=== PATIENT | female | born 1995 ===

== ENCOUNTER 2017-09-05 23:30 | Emergency (ER) | payer MEDICAID ==
[2017-09-06 00:43] VITALS: RESP 20; TEMP 98.4; O2SAT 99
--- NOTE | 2017-09-06 01:05 | C.PDOC ---
History Of Present Illness 21 year old female presents to the ED with complaints of bilateral ear and throat pain starting today; she was treated with antibiotics for similar symptoms approximately 3 weeks ago. Denies any other symptoms. no fever or chills. Time Seen by Provider: 09/06/17 00:55 Chief Complaint (Nursing): ENT Problem History Per: Patient History/Exam Limitations: None Onset/Duration Of Symptoms: Days Current Symptoms Are (Timing): Still Present Quality (Ear): Other (Pain) Quality (Mouth/Throat): Other (Sore throat) Symptoms Have Been: Continuous Past Medical History Reviewed: Historical Data, Nursing Documentation, Vital Signs Vital Signs: Last Vital Signs Temp 98.4 F 09/06/17 00:39 Pulse 88 09/06/17 02:11 Resp 20 09/06/17 02:11 BP 128/77 09/06/17 02:11 Pulse Ox 99 09/08/17 21:52 - Medical History PMH: Asthma Surgical History: No Surg Hx Family History: States: Unknown Family Hx - Social History Hx Tobacco Use: No Hx Alcohol Use: No Hx Substance Use: No - Immunization History Hx Tetanus Toxoid Vaccination: No Hx Influenza Vaccination: No Hx Pneumococcal Vaccination: No Review Of Systems Constitutional: Negative for: Fever, Chills ENT: Positive for: Ear Pain, Throat Pain. Negative for: Ear Discharge Respiratory: Negative for: Cough Physical Exam - Physical Exam Appears: Non-toxic, No Acute Distress Skin: Normal Color, Warm, Dry Head: Atraumatic, Normacephalic Ear(s): Bilateral: Normal Nose: Normal, No Discharge Tongue: Normal Appearing, No Swelling Throat: Erythema (Mild), Other (No tonsilar enlargement or exudates) Neck: Normal, Supple Lymphatic: Normal Exam, No Adenopathy (cervical) Chest: Symmetrical, No Deformity, No Tenderness Cardiovascular: Rhythm Regular, No Murmur Respiratory: Normal Breath Sounds, No Rales, No Rhonchi, No Wheezing Gastrointestinal/Abdominal: Soft, No Tenderness Neurological/Psych: Oriented x3, Normal Speech, Normal Cognition ED Course And Treatment O2 Sat by Pulse Oximetry: 99 (Room air) Pulse Ox Interpretation: Normal Medical Decision Making Medical Decision Making: Throat culture, and strep test performed, Tylenol administered. Rapid strep results came back negative, patient instructed to take claritin and follow up with PMD. Disposition Counseled Patient/Family Regarding: Studies Performed, Need For Followup, Rx Given - Disposition Referrals: Jodee Gusman MD [Medical Doctor] - Disposition: HOME/ ROUTINE Disposition Time: 02:03 Condition: STABLE Additional Instructions: Gargle with warm salty water several times a day, drink tea with honey and lemon. Take claritin as directed. Follow up with your doctor in a few days. Tylenol or Motrin for pain. Prescriptions: Loratadine 10 mg PO DAILY #30 tablet Instructions: Pharyngitis (ED) Forms: [employer] (Lao), Emergency Room Disch/Depart - Clinical Impression Clinical Impression: Pharyngitis - Scribe Statement The provider has reviewed the documentation as recorded by the Scribe Federico Gerard All medical record entries made by the Scribe were at my direction and personally dictated by me. I have reviewed the chart and agree that the record accurately reflects my personal performance of the history, physical exam, medical decision making, and the department course for this patient. I have also personally directed, reviewed, and agree with the discharge instructions and disposition.
[2017-09-06 02:15] VITALS: BP 128/77; PULSE 88
== END 2017-09-06 02:11 | disposition home or self-care (01) ==
LOC: C.ER 23:30
DX: J02.9 Acute pharyngitis, unspecified (principal)

== ENCOUNTER 2017-12-17 14:17 | Emergency (ER) | payer MEDICAID, OTHER ==
[2017-12-17 14:23] VITALS: BP 125/73; PULSE 99; RESP 18; TEMP 99; O2SAT 99
--- NOTE | 2017-12-17 14:33 | C.PDOC ---
History Of Present Illness Patient presents to ED with complaints of cough, congestion for the past 2 weeks. She reports for the past 2 days, she has had associated sore throat, generalized body aches, subjective fever, nausea and diarrhea. She denies any other medical complaints. Time Seen by Provider: 12/17/17 14:28 Chief Complaint (Nursing): Flu-like Symptoms History Per: Patient History/Exam Limitations: no limitations Onset/Duration Of Symptoms: Days, Persistent Current Symptoms Are (Timing): Still Present Location Of Pain: Diffuse Myalgias Associated Symptoms: Fever, Sore Throat, Cough, Myalgias, Nasal Congestion Past Medical History Reviewed: Historical Data, Nursing Documentation, Vital Signs Vital Signs: Last Vital Signs Temp 99 F 12/17/17 14:21 Pulse 99 H 12/17/17 14:21 Resp 18 12/17/17 14:21 BP 125/73 12/17/17 14:21 Pulse Ox 99 12/17/17 14:43 - Medical History PMH: Asthma Surgical History: No Surg Hx Family History: States: Unknown Family Hx - Social History Hx Tobacco Use: No Hx Alcohol Use: No Hx Substance Use: No - Immunization History Hx Tetanus Toxoid Vaccination: No Hx Influenza Vaccination: No Hx Pneumococcal Vaccination: No Review Of Systems Constitutional: Positive for: Fever, Weakness, Malaise ENT: Positive for: Nose Congestion, Throat Pain. Negative for: Ear Pain Cardiovascular: Negative for: Chest Pain, Palpitations Respiratory: Positive for: Cough Gastrointestinal: Positive for: Nausea, Diarrhea Skin: Negative for: Rash Neurological: Negative for: Headache, Dizziness Physical Exam - Physical Exam Appears: Well, Non-toxic, No Acute Distress Skin: Normal Color, Warm, Dry Head: Atraumatic, Normacephalic Eye(s): bilateral: Normal Inspection, PERRL, EOMI Ear(s): Bilateral: Normal Nose: Normal Oral Mucosa: Moist Tongue: Normal Appearing Lips: Normal Appearing Teeth: Normal Dentition Gingiva: Normal Appearing Throat: Normal, No Erythema, No Exudate Neck: Normal ROM, Supple Chest: Symmetrical Cardiovascular: Rhythm Regular Respiratory: Normal Breath Sounds, No Wheezing Gastrointestinal/Abdominal: Soft, No Tenderness Extremity: Bilateral: Atraumatic, Normal ROM Neurological/Psych: Oriented x3, Normal Speech ED Course And Treatment O2 Sat by Pulse Oximetry: 99 (RA) Pulse Ox Interpretation: Normal Medical Decision Making Medical Decision Making: Patient with multi-symptom complaints, likely viral or flu-like. She has no fever and benign exam in ED. Recommend rest, fluids and supportive treatment. Advise follow up with primary doctor or clinic for further evaluation. Disposition Counseled Patient/Family Regarding: Diagnosis, Need For Followup, Rx Given - Disposition Referrals: Jodee Gusman MD [Medical Doctor] - Disposition: HOME/ ROUTINE Disposition Time: 14:35 Condition: GOOD Additional Instructions: You have viral upper respiratory infection. Take Tylenol or Motrin alternating every 4-6 hours for Fever 100.4F or higher. Rest and drink plenty of fluids. Take Zofran and Lomotil as needed for nausea and diarrhea. May use cool mist humidifier or vaporizer in room. Try taking over the counter antihistamine ( Claritin, Bouchra, Zyrtec), Decongestant or Cough medicine as needed every 6-8 hours. Follow up with your primary medical doctor or clinic in 1 week for further evaluation. Prescriptions: Atropine/Diphenoxylate [Lonox 0.025 MG-2.5 MG] 1 tab PO PRN PRN #6 tab PRN Reason: Diarrhea Benzocaine/Menthol [Cepacol Sore Throat] 1 adelita MM Q2 #30 adelita Ondansetron ODT [Zofran ODT] 1 odt PO BID PRN #6 odt PRN Reason: Nausea/Vomiting Promethazine DM [Phenergan DM Syrup] 10 ml PO Q8 PRN #300 ml PRN Reason: Cough Instructions: Viral Syndrome (ED) Forms: [employer] (Chinese), Work Excuse - POA Present On Arrival: None - Clinical Impression Clinical Impression: Influenza-like illness - PA / [employer] / Resident Statement MD/DO has reviewed & agrees with the documentation as recorded. - Scribe Statement The provider has reviewed the documentation as recorded by the Gregoria August Provider Attestation: All medical record entries made by the Gregoria were at my direction and personally dictated by me. I have reviewed the chart and agree that the record accurately reflects my personal performance of the history, physical exam, medical decision making, and the department course for this patient. I have also personally directed, reviewed, and agree with the discharge instructions and disposition.
== END 2017-12-17 14:42 | disposition home or self-care (01) ==
LOC: C.ER 14:17
DX: J11.1 Influenza due to unidentified influenza virus with other respiratory manifestations (principal)

== ENCOUNTER 2018-06-20 19:44 | Emergency (ER) | payer MEDICAID ==
[2018-06-20 20:11] VITALS: RESP 18
--- NOTE | 2018-06-20 20:16 | C.PDOC ---
History Of Present Illness The patient presents to the ED for evaluation after she became lightheaded, dizzy and diaphoretic while waiting at a restaurant earlier today. Patient also reports experiencing some abdominal pain and nausea. She then went outside for some air, and reports seeing some "white spots" in her eyes. Patient states she feels tired and denies fever, chills, or vomiting at this time. Time Seen by Provider: 06/20/18 20:10 Chief Complaint (Nursing): Dizziness/Lightheaded History Per: Patient History/Exam Limitations: no limitations Onset/Duration Of Symptoms: Hrs Current Symptoms Are (Timing): Still Present Severity: Mild Pain Scale Rating Of: 4 Recent travel outside of the [place]: No Additional History Per: Patient Past Medical History Reviewed: Historical Data, Nursing Documentation, Vital Signs Vital Signs: Last Vital Signs Temp 98.7 F 06/20/18 21:55 Pulse 84 06/20/18 21:55 Resp 18 06/20/18 21:55 BP 110/70 06/20/18 21:55 Pulse Ox 98 06/20/18 21:55 - Medical History PMH: Asthma, Chronic Kidney Disease Surgical History: No Surg Hx Family History: States: No Known Family Hx - Social History Hx Tobacco Use: No Hx Alcohol Use: Yes Hx Substance Use: No - Immunization History Hx Tetanus Toxoid Vaccination: No Hx Influenza Vaccination: No Hx Pneumococcal Vaccination: No Review Of Systems Constitutional: Positive for: Other (diaphoretic ). Negative for: Fever, Chills Eyes: Positive for: Other (seeing "white spots"). Negative for: Pain, Vision Change ENT: Negative for: Ear Pain Cardiovascular: Negative for: Chest Pain, Palpitations Respiratory: Negative for: Cough, Shortness of Breath Gastrointestinal: Positive for: Nausea, Abdominal Pain. Negative for: Vomiting , Diarrhea Skin: Negative for: Rash, Lesions, Jaundice, Bruising Neurological: Positive for: Dizziness, Other (lightheadedness ). Negative for: Weakness, Numbness, Headache Psych: Negative for: Anxiety Physical Exam - Physical Exam Appears: Non-toxic, No Acute Distress Skin: Warm, Dry Head: Atraumatic, Normacephalic Eye(s): bilateral: PERRL, EOMI Ear(s): Bilateral: Normal Oral Mucosa: Moist Neck: Supple Chest: Symmetrical, No Deformity, No Tenderness Cardiovascular: Rhythm Regular, No Murmur Respiratory: No Rales, No Rhonchi, No Wheezing Gastrointestinal/Abdominal: Soft, No Tenderness, No Guarding, No Rebound Extremity: Normal ROM, Capillary Refill (less than 2 seconds ) Neurological/Psych: Oriented x3 Gait: Steady ED Course And Treatment - Laboratory Results Result Diagrams: 06/20/18 20:46 06/20/18 20:46 ECG: Interpreted By Me, Viewed By Me ECG Rhythm: Sinus Rhythm (72), Nonspecific Changes O2 Sat by Pulse Oximetry: 100 (on RA) Pulse Ox Interpretation: Normal Progress Note: Bloodwork, urinalysis, and EKG ordered. IV fluids given. Reevaluation Time: 21:57 Reassessment Condition: Improved Disposition Counseled Patient/Family Regarding: Studies Performed, Diagnosis, Need For Followup, Rx Given - Disposition Disposition: HOME/ ROUTINE Disposition Time: 20:15 Condition: FAIR Additional Instructions: Pleaase return in 12-24 hours if not feeling better Prescriptions: Nitrofurantoin Macrocrystals [Macrobid] 1 cap PO BID #14 cap Instructions: Urinary Tract Infection, Adult (DC) Forms: [employer] (Uruguayan) - Clinical Impression Clinical Impression: UTI (urinary tract infection), Malaise and fatigue - Scribe Statement The provider has reviewed the documentation as recorded by the Scribe (Bree Pemberton) Provider Attestation: All medical record entries made by the Scribe were at my direction and personally dictated by me. I have reviewed the chart and agree that the record accurately reflects my personal performance of the history, physical exam, medical decision making, and the department course for this patient. I have also personally directed, reviewed, and agree with the discharge instructions and disposition.
[2018-06-20] MEDS ORDERED: Sodium Chloride 0.9% 1,000 ML IV ONE (20:31)
[2018-06-20 20:32] LABS: HCG,QUALITATIVE URINE NEGATIVE (NEGATIVE)
[2018-06-20 20:37] LABS: SQUAMOUS EPITHIAL 3 /hpf (0-5); URINE BACTERIA OCC (<OCC); URINE BILIRUBIN NEGATIVE (NEGATIVE); URINE BLOOD 1+ (NEGATIVE); URINE CLARITY Hazy (Clear); URINE COLOR Yellow (YELLOW); URINE GLUCOSE (UA) NORMAL (Normal); URINE LEUKOCYTE ESTERASE TRACE Leu/uL (Negative); URINE PROTEIN 1+ mg/dL (NEGATIVE)
[2018-06-20] MEDS ORDERED: Sodium Chloride 0.9% 1,000 ML ONE (20:43)
[2018-06-20 20:51] LABS: BASO % 0.2 % (0.0-2.0); EOS % 0.3 % (0.0-4.0); HEMOGLOBIN 12.6 g/dL (11.0-16.0); LYMPH % 9.3 % (20.0-40.0); MEAN CELL VOLUME 88.8 fL (81.0-99.0); MEAN CORPUSCULAR HEMOGLOBIN 30.5 pg (27.0-31.0); MEAN CORPUSCULAR HGB CONC 34.4 g/dL (33.0-37.0); MEAN PLATELET VOLUME 8.3 fL (7.2-11.7); MONO # 0.7 K/uL (0.0-0.8); MONO % 7.1 % (0.0-10.0); NEUT # 8.8 K/uL (1.8-7.0); NEUT % 83.1 % (50.0-75.0); PLATELET COUNT 307 K/uL (130-400); RBC 4.14 Mil/uL (3.80-5.20); RED CELL DISTRIBUTION WIDTH 12.4 % (11.5-14.5); WHITE BLOOD COUNT 10.6 K/uL (4.8-10.8)
[2018-06-20 21:16] LABS: ALB/GLOB RATIO 1.5 (1.0-2.1); ALBUMIN 4.6 g/dL (3.5-5.0); ALT/SGPT 21 U/L (9-52); AST/SGOT 17 U/L (14-36); BLOOD UREA NITROGEN 13 mg/dL (7-17); CALCIUM 9.8 mg/dl (8.6-10.4); GFR AFRICAN-AMERICAN > 60; GFR NON-AFRICAN AMERICAN > 60; LIPASE 72 U/L (23-300)
[2018-06-20 21:39] LABS: LARGE PLATELETS PRESENT; LYMPHOCYTE 6 % (20-40); MONOCYTE 4 % (0-10); NEUTROPHIL 90 % (50-75); PLATELET ESTIMATE NORMAL (NORMAL); TOTAL CELLS COUNTED 100
[2018-06-20 21:55] VITALS: BP 110/70; PULSE 84; TEMP 98.7
[2018-06-20 21:59] VITALS: O2SAT 100
== END 2018-06-20 22:04 | disposition home or self-care (01) ==
LOC: C.ER 19:44
DX: N39.0 Urinary tract infection, site not specified (principal); R53.83 Other fatigue
CPT/HCPCS: 80053; 81001; 82948; 83690; 83735; 84443; 84703; 85025; 96360; 99285; J7030